=== PATIENT | female | born 1945 | race Caucasian/White ===

== ENCOUNTER 2017-08-18 11:16 | Inpatient (IN) ==
[2017-08-18] MEDS ORDERED: Lacri-Lube 3.5 GM TUBE BOTH EYES PRN (13:00)
[2017-08-18] MEDS ORDERED: *HR* Dextrose 50 % in Water (Syg) 50 ML SYRINGE IVP PRN (13:18)
[2017-08-18] MEDS ORDERED: Dextrose Gel 15 GM/37.5 ML TUBE PO PRN ×2 (13:18)
[2017-08-18] MEDS ORDERED: D5% in Water 1,000 ML IVC PRN (13:18)
--- NOTE | 2017-08-18 13:24 | Pulmonology History & Physical ---
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 Patient lives in long-term. Likely secondary to bronchitis vs HCAP ABG at [facility]: respiratory acidosis with hypoxia. SIRS (-) on intake. Afebtile, no tachycardia, not hypotensive, no leukocytosis or leukocytopenia. Agressively suction trach to minimize mucus plugging. Empiric antibiotics Vancomycin day 1 Zosyn day 1 Levaquin day 1 Microbiology: Blood culture peripheral 08/18 x2 pending Sputum culture 08/18 pending Bronchodilators SoluMedrol Elevate head of bed Difficult vascular access - place midline. Qualifiers: Respiratory failure complication: hypoxia and hypercapnia Qualified Code(s) : J96.21 - Acute and chronic respiratory failure with hypoxia; J96.22 - Acute and chronic respiratory failure with hypercapnia; J96.22 - Acute and chronic respiratory failure with hypercapnia; J96.22 - Acute and chronic respiratory failure with hypercapnia (2) Hypotension (arterial) Current visit: Yes Status: Acute BP at [facility] 08's/40's. Possibly medication induced: Patient reportedly received ativan and her antihypertensive meds prior to dialysis; potentially causing her hypotension. Currently stable. Qualifiers: Hypotension type: unspecified hypotension type Qualified Code(s): I95.9 - Hypotension, unspecified (3) ESRD (end stage renal disease) on dialysis Current visit: Yes Status: Acute Dialysis at [place]. Nephrology consult, Dr. Curran. (4) DVT prophylaxis Current visit: Yes Status: Acute Non-ambulatory at baseline. EPCD. Avoid heparin, lovenox should patient require CVC. History of Present Illness Chief complaint: dyspnea HPI: Ms. Moreno is a 72 year old female, presents to the ICU via EMS from [facility] emergency department. She was at her scheduled dialysis this morning and, while access was being obtained, became hypotensive and dyspneic. Reportedly required bagging to increase oxygenation while at dialysis. She was taken to [facility] where she remained hypotensive to 80's over 40's. Transferred to [facility] ICU as patient is vent dependent, limited respiratory support at [facility], and need for ultrasound for line placement. On arrival to [facility], patient's SBP is in the mid- high 80's. She is awake, alert, talkative. Her 2nd L NS is hanging and running. Her O2 saturation is appropriate and improved with copious deep suctioning. ROS: Pos: increased mucous secretions from bronchi/trachea, nausea Neg: Fever, chills, vomiting PMH: Chronic respiratory failure. Vent dependent with trach & PEG. COPD. MAITE. Obesity hypoventilation syndrome. Chronic atrial fibrillation on eliquis. HTN, HLD, CAD, Diastolic CHF. ESRD on dialysis (right forearm fistula, [place] dialysis, Dr. Curran) . Anemia of CKD. DM II insulin dependent. GERD, Gout. Reported sacral ulcers. anxiety, depression. Per [facility] documentation: Primary contact: DaughterNoa (last name not legible). O: [phone], H:[phone] Secondary contact: Yodit Bradford: H: [phone] 13:30 Attempted to call all three numbers above. Unsuccessful. [phone]...answering machine states "this is Sarthak." [phone]...number is not active [phone]...no answer, unable to leave message. Past Med Surg Social Fam HX - Past Medical History Medical history: atrial fibrillation, COPD, coronary artery disease, diabetes, GERD, hyperlipidemia, hypertension, renal disease, other (depression anxiety resp failure ) Psychiatric history: anxiety - Social History Smoking Status: Unknown if ever smoked Smokeless Tobacco Status: No Alcohol use: none Drug use: none Medications and Allergies Allopurinol [Zyloprim 100 MG] 100 mg PO DAILY 04/21/17 [History] Apixaban [Eliquis] 2.5 mg PO BID 04/21/17 [History] Fluticasone Propionate Nasal [Flonase] 100 mcg NS DAILY 04/21/17 [History] LORazepam [Ativan] 1 mg PO Q6H 04/21/17 [History] LORazepam [Ativan] 1 mg PO TUTHSA 04/21/17 [History] Metoprolol [Lopressor] 6.25 mg PO BID 04/21/17 [History] Midodrine HCl 2.5 mg PO Q6H PRN 04/21/17 [History] Naproxen Sodium [Aleve] 220 mg PO BID PRN 04/21/17 [History] Omeprazole [PriLOSEC] 20 mg PO DAILY 04/21/17 [History] Renal Vitamin [Renal Caps Softgel] 1 mg PO DAILY 04/21/17 [History] Sevelamer [Renvela] 800 mg PO TIDWM 04/21/17 [History] Azelastine 0.1% Nasal [place] [Astelin] 2 spray NS BID PRN 08/18/17 [History] Benzocaine/Menthol [Sore Throat Lozenge] 1 each MM Q4H PRN 08/18/17 [History] Ferrous Sulfate 325 mg PO DAILY 08/18/17 [History] GuaiFENesin/Dextromethorphan [Tussin Dm Syrup] 5 ml PO Q6H PRN 08/18/17 [History ] Homeopathic Ear Pain Drops 4 drop OT TID PRN 08/18/17 [History] Lidocaine 4% CRM (LMX) [Lmx 4] 1 appl TP TUTHSA 08/18/17 [History] Loratadine [Claritin] 10 mg PO DAILY 08/18/17 [History] Magic Mouthwash [Magic Mouthwash BLM] 10 ml PO Q6H PRN 08/18/17 [History] Sertraline [Zoloft] 50 mg PO DAILY 08/18/17 [History] levoFLOXacin [Levaquin] 500 mg PO DAILY 08/18/17 [History] 3 Allergy/AdvReac Type Severity Reaction Status Date / Time acetaminophen Allergy Vomiting Verified 04/21/17 13:28 adhesive tape Allergy See Verified 08/18/17 14:37 Comments codeine Allergy Rash Verified 04/21/17 13:28 indomethacin [From Indocin] Allergy Rash Verified 04/21/17 13:28 All Systems: The remainder of the systems were reviewed and are negative - Constitutional Constitutional: no daytime sleepiness, no fatigue, no fever(s), no lethargy, no weakness - Cardiovascular Cardiovascular: irregular heart rhythm, no chest pain, no leg edema, no pedal edema - Respiratory Respiratory: cough, dyspnea, excessive phlegm production, no hemoptysis - Gastrointestinal Gastrointestinal: nausea, no abdominal pain, no diarrhea, no hematemesis, no loose stools, no melena, no vomiting - Genitourinary Genitourinary: no difficulty urinating, no dysuria - Neurological Neurological: no abnormal speech, no confusion - Psychiatric Psychiatric: anxiety, depression - Hematologic/Lymphatic Hematologic/Lymphatic: no easy bleeding, no easy bruising Physical Examination General appearance: no acute distress, alert ENT: oropharynx moist Neck: supple Effort: normal Auscultation: bilateral: diminished breath sounds, other (Copious secrations suctioned via trach tube.) Cardiovascular: regular rate and rhythm Gastrointestinal: normoactive bowel sounds, soft, non-tender, non-distended Integumentary: normal Extremities: no cyanosis, no edema, no clubbing, pink and warm, pulses normal, no ischemia or petechiae Musculoskeletal: no deformities normal mental status, non-focal exam, pupils equal and round mood appropriate <Cinthia Cuello S - Last Filed: 08/18/17 21:10> Date of Encounter: 08/18/17 History of Present Illness HPI: Ms. Moreno is a 72 year old female All Systems: The remainder of the systems were reviewed and are negative Physical Examination Vital Signs: Vital Signs, Last 4 Hours Temp Pulse Resp BP Pulse Ox 08/18/17 20:26 98.1 F 08/18/17 20:00 86 35 102/69 100 08/18/17 19:26 35 97/85 100 08/18/17 19:00 85 35 97/58 96 08/18/17 18:30 79 21 88/54 96 08/18/17 17:58 22 92 08/18/17 17:30 76 22 111/61 96 Results - Laboratory Findings CBC and BMP: 08/18/17 14:50 08/18/17 13:09 ABG ABG pH 7.41 pH Units (7.32-7.45) D 08/18/17 15:46 ABG pCO2 36 mmHg (35-45) D 08/18/17 15:46 ABG pO2 121 mmHg (85-104) H D 08/18/17 15:46 ABG O2 Saturation 99 % (95-98) H 08/18/17 15:46 Abnormal lab findings: Abnormal lab results RBC 3.46 M/mcL (3.82-4.97) L 08/18/17 14:50 Hgb 10.4 g/dL (11.5-15.4) L 08/18/17 14:50 Hct 33.8 % (35.3-44.9) L 08/18/17 14:50 MCHC 30.8 g/dL (31.6-35.5) L 08/18/17 14:50 Plt Count 85 K/mcL (140-400) L 08/18/17 14:50 Lymphocytes # 0.5 K/mcL (0.6-4.6) L 08/18/17 14:50 Platelet Estimate Decreased (Normal) L 08/18/17 14:50 ABG pO2 121 mmHg (85-104) H D 08/18/17 15:46 ABG O2 Saturation 99 % (95-98) H 08/18/17 15:46 Carbon Dioxide 22 mEq/L (23-29) L 08/18/17 13:09 BUN 69 mg/dL (8-23) H 08/18/17 13:09 Creatinine 6.82 mg/dL (0.60-1.20) H 08/18/17 13:09 Est GFR ( Amer) 7 (> 60) L 08/18/17 13:09 Est GFR (Non-Af Amer) 6 (> 60) L 08/18/17 13:09 Glucose 128 mg/dL (70-105) H 08/18/17 13:09 Calculated Osmolality 306 (280-300) H 08/18/17 13:09 Troponin I 0.05 ng/mL (< 0.04) H* 08/18/17 20:03 - Attending Attestation I saw and evaluated this patient and my medical decision-making was reviewed with the Resident Physician. I agree with the documented findings, disposition and treatment plan as described except to the extent set forth below. We independently had [id number] contact with the patient I spent 35 minutes of Critical Care time with this patient. It involved decision making of high complexity to assess, manipulate, and support vital organ system failure and/or to prevent further life threatening deterioration of the patient's condition. The time involved in the performance of separately reportable procedures was not counted toward critical care time. Patient seen and examined at bedside Labs, radiology, chart personally reviewed. Management was reviewed during multidisciplinary critical care rounds. MOPPER:Patient is awake alert following commands having meaningful conversation was able to speak with tracheostomy. Pulm: Patient developed acute on chronic hypoxic respiratory failure complicated by hypercarbia secondary to bacterial tracheitis vs suspected gram positive and gram negative pneumonia will cover with broad spectrum antibiotics lung protective strategy for ventilation with dropping of tidal volume peak pressures lowered , adjusted the PEEP to Keep SPO2 around 94% there is some pulmonary edema will need dialysis tomorrow Cards:Patient is hemodynamically stable may be the drop in blood pressure can be due to ativan and anti-hypertensive which was given before the dialysis FEN-GI: Tube feeding according to nutrition Renal: Labs were reviewed no urgent indications for dialysis patient is a patient most likely dialysis tomorrow ID: Patient has bacterial tracheitis vs Suspected Gram positive and Gram negative pneumonia Heme/Onc:Labs reviewed Endo: Glucose Monitored Integ/MSK: Skin Care per routine ICU Nursing Protocol to prevent ulcers. Lines: All lines examined without evidence of infection : Dispo: Critically ill high risk for worsening hypoxic respiratory failure and development of septic shock . CODE:Full Code
[2017-08-18] MEDS ORDERED: Levofloxacin 750 MG/150 ML 750 MG/150 ML BAG IVPB ONE (14:00)
[2017-08-18] MEDS: Piperacillin/Tazobactam 3.375 GM in 0.9 % Sodium Chloride Mini Bag 100 ML IVPB SCH (14:49)
[2017-08-18 15:38] LABS: Calcium 8.9 mg/dL (8.6-10.3)
[2017-08-18] MEDS: Ipratropium/Albuterol Neb 3 ML IH SCH ×3 (15:49→21:27)
[2017-08-18 15:56] LABS: Basophils % 0.1 %; Hematocrit 33.8 % (35.3-44.9); Hemoglobin 10.4 g/dL (11.5-15.4); Immature Granulocytes % 0.7 % (0-4); Lymphocytes # 0.5 K/mcL (0.6-4.6); Mean Corpuscular HGB Conc 30.8 g/dL (31.6-35.5); Mean Corpuscular Hemoglobin 30.1 pg (28.0-33.3); Mean Corpuscular Volume 97.7 fL (83.0-100.0); Mean Platelet Volume 11.1 fL (9.4-12.4); Monocytes # 0.4 K/mcL (0.0-1.3); Monocytes % 4.4 %; Neutrophils # 8.7 K/mcL (1.6-8.9); Red Blood Count 3.46 M/mcL (3.82-4.97); Red Cell Distribution Width 13.9 % (11.5-14.5); Segmented Neutrophils % 89.8 %
[2017-08-18 16:04] LABS: ABG Base Excess -2 mEq/L (-2 to 3); ABG HCO3 23 mEq/L (21-27); ABG Oxygen Saturation 99 % (95-98); ABG PCO2 36 mmHg (35-45); ABG PH 7.41 pH Units (7.32-7.45); ABG PO2 121 mmHg (85-104); ABG TCO2 24 mEq/L (20-26); Blood Gas PEEP 5 cm H2O; Blood Gas Respiration Rate 18; Blood Gas VT 600 cc
[2017-08-18 16:11] LABS: Platelet Count 85 K/mcL (140-400)
[2017-08-18 16:12] LABS: Platelet Estimate Decreased (Normal)
[2017-08-18] MEDS ORDERED: Dexmedetomidine HCl 400 MCG/100 ML MLS IVC ONE (16:48)
[2017-08-18] MEDS: Dexmedetomidine HCl 400 MCG/100 ML MLS IVC SCH (16:55)
[2017-08-18] MEDS: Lacri-Lube 3.5 GM TUBE BOTH EYES SCH ×3 (18:15→23:59)
[2017-08-18] MEDS: methylPREDNISolone 125 MG/2 ML VIAL IVP SCH ×2 (18:27→23:59)
[2017-08-18 20:34] LABS: Troponin I 0.05 ng/mL (< 0.04)
[2017-08-18] MEDS: Insulin LISPRO 300 UNITS/3 ML VIAL SQ SCH ×2 (20:46→23:59)
[2017-08-18] MEDS: Chlorhexidine Rinse 15 ML MOUTHWASH MM SCH (20:54)
[2017-08-18] MEDS: Pantoprazole 40 MG VIAL IVP SCH (20:54)
[2017-08-18 21:26] LABS: Thyroid Stimulating Hormone 2.133 mcIU/mL (0.340-5.600)
[2017-08-19] MEDS: Piperacillin/Tazobactam 3.375 GM in 0.9 % Sodium Chloride Mini Bag 100 ML IVPB SCH ×2 (02:21→13:51)
[2017-08-19] MEDS: Dexmedetomidine HCl 400 MCG/100 ML MLS IVC SCH ×3 (02:22→14:07)
[2017-08-19] MEDS: Ipratropium/Albuterol Neb 3 ML IH SCH ×3 (03:30→16:07)
[2017-08-19] MEDS: Lacri-Lube 3.5 GM TUBE BOTH EYES SCH ×4 (03:48→16:41)
[2017-08-19 03:49] LABS: Basophils % 0.1 %; Hematocrit 32.7 % (35.3-44.9); Hemoglobin 10.4 g/dL (11.5-15.4); Immature Granulocytes % 0.7 % (0-4); Lymphocytes # 0.5 K/mcL (0.6-4.6); Lymphocytes % 6.3 %; Mean Corpuscular HGB Conc 31.8 g/dL (31.6-35.5); Mean Corpuscular Volume 94.2 fL (83.0-100.0); Monocytes # 0.2 K/mcL (0.0-1.3); Monocytes % 2.5 %; Neutrophils # 7.5 K/mcL (1.6-8.9); Platelet Count 104 K/mcL (140-400); Red Blood Count 3.47 M/mcL (3.82-4.97); Segmented Neutrophils % 90.4 %
[2017-08-19 04:46] LABS: Calcium 9.2 mg/dL (8.6-10.3); Potassium 5.6 mEq/L (3.5-5.1)
[2017-08-19] MEDS: Insulin LISPRO 300 UNITS/3 ML VIAL SQ SCH ×2 (05:48→11:35)
[2017-08-19] MEDS: methylPREDNISolone 125 MG/2 ML VIAL IVP SCH ×2 (05:48→13:51)
[2017-08-19] MEDS: Pantoprazole 40 MG VIAL IVP SCH (08:05)
[2017-08-19] MEDS: Chlorhexidine Rinse 15 ML MOUTHWASH MM SCH (08:05)
[2017-08-19] MEDS ORDERED: 0.9 % Sodium Chloride 250 ML IVC PRN (08:28)
--- NOTE | 2017-08-19 08:28 | Nephrology Consult Note ---
Date of Encounter: 08/19/17 Time of Encounter: 08:26 Assessment and Plan (1) ESRD (end stage renal disease) on dialysis Current Visit: Yes Status: Acute The patient will undergo dialysis today. Potassium is 5.6. She will be dialyzed on a 2K bath. Hemoglobin is 10.4. She will be maintained on Aranesp will she is here in the hospital. (2) Anemia in CKD (chronic kidney disease) Current Visit: Yes Status: Acute Qualifiers: Chronic kidney disease stage: on chronic dialysis Qualified Code(s): N18.6 - End stage renal disease; D63.1 - Anemia in chronic kidney disease; D63.1 - Anemia in chronic kidney disease; Z99.2 - Dependence on renal dialysis; Z99.2 - Dependence on renal dialysis; Z99.2 - Dependence on renal dialysis; Z99.2 - Dependence on renal dialysis (3) Acute and chronic respiratory failure ([id number]) Current Visit: Yes Status: Acute Qualifiers: Respiratory failure complication: hypoxia and hypercapnia Qualified Code(s) : J96.21 - Acute and chronic respiratory failure with hypoxia; J96.22 - Acute and chronic respiratory failure with hypercapnia; J96.22 - Acute and chronic respiratory failure with hypercapnia; J96.22 - Acute and chronic respiratory failure with hypercapnia History of Present Illness - History of Present Illness This is a 72-year-old female. She has end-stage renal disease and receives dialysis and [place] did not every Thursday. Patient presented to the dialysis unit yesterday with hypoxia. Her oxygen saturations were unable to be maintained unless she was bagged. She subsequently was sent to the emergency room at [facility]. She was found to have a mucous plug that was removed. This led to improved oxygenation. There was concern for pneumonia as well so she subsequently was transferred [facility]. Currently she is in the intensive care unit. She is resting comfortably on the ventilator. She is alert and able to communicate. She did not receive dialysis yesterday so she will undergo dialysis today. Past Med Surg Social Fam HX - Past Medical History Medical history: atrial fibrillation, COPD, coronary artery disease, diabetes, GERD, hyperlipidemia, hypertension, renal disease, other (depression anxiety resp failure ) Psychiatric history: anxiety - Social History Smoking Status: Unknown if ever smoked Smokeless Tobacco Status: No Alcohol use: none Drug use: none Medications and Allergies Allopurinol [Zyloprim 100 MG] 100 mg PO DAILY 04/21/17 [History] Apixaban [Eliquis] 2.5 mg PO BID 04/21/17 [History] Fluticasone Propionate Nasal [Flonase] 100 mcg NS DAILY 04/21/17 [History] LORazepam [Ativan] 1 mg PO Q6H 04/21/17 [History] LORazepam [Ativan] 1 mg PO TUTHSA 04/21/17 [History] Metoprolol [Lopressor] 6.25 mg PO BID 04/21/17 [History] Midodrine HCl 2.5 mg PO Q6H PRN 04/21/17 [History] Naproxen Sodium [Aleve] 220 mg PO BID PRN 04/21/17 [History] Omeprazole [PriLOSEC] 20 mg PO DAILY 04/21/17 [History] Renal Vitamin [Renal Caps Softgel] 1 mg PO DAILY 04/21/17 [History] Sevelamer [Renvela] 800 mg PO TIDWM 04/21/17 [History] Azelastine 0.1% Nasal [employer] [Astelin] 2 spray NS BID PRN 08/18/17 [History] Benzocaine/Menthol [Sore Throat Lozenge] 1 each MM Q4H PRN 08/18/17 [History] Ferrous Sulfate 325 mg PO DAILY 08/18/17 [History] GuaiFENesin/Dextromethorphan [Tussin Dm Syrup] 5 ml PO Q6H PRN 08/18/17 [History ] Homeopathic Ear Pain Drops 4 drop OT TID PRN 08/18/17 [History] Lidocaine 4% CRM (LMX) [Lmx 4] 1 appl TP TUTHSA 08/18/17 [History] Loratadine [Claritin] 10 mg PO DAILY 08/18/17 [History] Magic Mouthwash [Magic Mouthwash BLM] 10 ml PO Q6H PRN 08/18/17 [History] Sertraline [Zoloft] 50 mg PO DAILY 08/18/17 [History] levoFLOXacin [Levaquin] 500 mg PO DAILY 08/18/17 [History] 3 Allergy/AdvReac Type Severity Reaction Status Date / Time acetaminophen Allergy Vomiting Verified 04/21/17 13:28 adhesive tape Allergy See Verified 08/18/17 14:37 Comments codeine Allergy Rash Verified 04/21/17 13:28 indomethacin [From Indocin] Allergy Rash Verified 04/21/17 13:28 Review of Systems ROS unobtainable: due to endotracheal tube Exam - Vital Signs Vital signs: Initial Vital Signs Temp Pulse Resp BP Pulse Ox 96 F L 88 28 101/58 100 08/18/17 12:45 08/18/17 12:45 08/18/17 12:45 08/18/17 12:45 08/18/17 12:45 Vital Signs - Last 8 Hours Temp Pulse Resp BP Pulse Ox 08/19/17 07:43 98.7 F 08/19/17 05:39 75 18 103/53 98 08/19/17 05:15 20 104/63 98 08/19/17 05:00 86 20 104/63 99 08/19/17 04:00 98.1 F 81 18 113/64 97 08/19/17 03:51 75 08/19/17 03:30 28 125/75 94 08/19/17 03:00 80 18 121/73 100 08/19/17 02:00 74 18 109/68 100 08/19/17 01:08 27 96/55 97 08/19/17 01:00 72 18 76/55 100 08/19/17 00:43 98.4 F Intake and Output 08/18/17 08/19/17 08/19/17 23:59 07:59 15:59 Intake Total 200 / 200 200 / 200 Output Total 0 / 0 Balance 200 / 200 200 / 200 Intake: IV Fluids 200 / 200 200 / 200 PRECEDEX Premix 400 mcg In 100 100 / 100 ml @ 0.2 MCG/KG/HR 5.5 mls/hr IVC .[id number] NICOLÁS Rx#:[id number] Levaquin Premix 750mg/150 mL 100 / 100 750 mg In 150 ml @ 100 mls/hr IVPB ONCE ONE Rx#:[id number] Zosyn 3.375 GM In 0.9 % Sodium 100 / 100 100 / 100 Chloride (Mini-Bag +) 100 ML @ 25 mls/hr IVPB Q12H [facility] Rx#: [id number] Oral 0 / 0 0 / 0 Output: Urine 0 / 0 Other: # Voids 1 Weight 110.8 kg Patient Weight 08/19/17 23:59 Weight 110.8 kg - General Appearance Exam: Patient is alert. She is in no acute distress. Lungs coarse breath sounds. Heart regular rate and rhythm. Abdomen shows normal bowel sounds braze masses or organomegaly or tenderness. There is no lower extremity swelling. There is a functioning AV graft in the right upper extremity. Results - Lab Results 08/19/17 03:38 08/19/17 02:25 Most recent lab results ABG pH 7.41 pH Units (7.32-7.45) D 08/18/17 15:46 ABG pCO2 36 mmHg (35-45) D 08/18/17 15:46 ABG pO2 121 mmHg (85-104) H D 08/18/17 15:46 ABG HCO3 23 mEq/L (21-27) 08/18/17 15:46 ABG O2 Saturation 99 % (95-98) H 08/18/17 15:46 Calcium 9.2 mg/dL (8.6-10.3) 08/19/17 02:25 Consult Discharge Plan - Plan Referrals: NONE,PCP [Primary Care Provider] -
--- NOTE | 2017-08-19 11:14 | Pulmonology Progress Note ---
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 Patient lives in [facility]. Likely secondary to bronchitis/tracheitis vs HCAP ABG at [facility]: respiratory acidosis with hypoxia. SIRS (-) on intake. Afebtile, no tachycardia, not hypotensive, no leukocytosis or leukocytopenia. CXR 08/19 slightly improved; edema persists. Agressively suction trach to minimize mucus plugging. Empiric antibiotics Vancomycin day 2 Zosyn day 2 Levaquin day 2 Microbiology: Blood culture peripheral 08/18 x2 pending Sputum culture 08/18 g+ cocci, g+ rai. Culture pending. Bronchodilators SoluMedrol Elevate head of bed Diurese via dialysis. Qualifiers: Respiratory failure complication: hypoxia and hypercapnia Qualified Code(s) : J96.21 - Acute and chronic respiratory failure with hypoxia; J96.22 - Acute and chronic respiratory failure with hypercapnia; J96.22 - Acute and chronic respiratory failure with hypercapnia; J96.22 - Acute and chronic respiratory failure with hypercapnia (2) Hypotension (arterial) Status: Resolved Resolved 08/19 BP at [facility] 80's/40's. Possibly medication induced: Patient reportedly received ativan and her antihypertensive meds prior to dialysis; potentially causing her hypotension. Currently stable. Qualifiers: Hypotension type: unspecified hypotension type Qualified Code(s): I95.9 - Hypotension, unspecified (3) ESRD (end stage renal disease) on dialysis Status: Acute Dialysis at [place]. Nephrology consult, Dr. Curran. (4) DVT prophylaxis Status: Acute Non-ambulatory at baseline. EPCD. Avoid heparin, lovenox should patient require CVC. Subjective Interval history: Hospital day 2 Patient did well overnight. She required suctioning Q30 min which has marginally improved to [id number] this morning. Patient's trach was exchanged this morning to same size, same type with no complications. No hypotensive events and no intervention required; suspect medication induced and patient has metabolized off the medications. Plan for dialysis today per Dr. Cruran. Continue empiric antibiotics. Sputum culture gram stain returned with gram + cocci and Gram - rods. Objective PUL Vital signs: Last Vital Signs Temp 98.7 F 08/19/17 07:43 Pulse 76 08/19/17 10:45 Resp 18 08/19/17 10:45 BP 122/69 08/19/17 10:45 Pulse Ox 98 08/19/17 10:45 General appearance: no acute distress, alert Eyes: nonicteric ENT: oropharynx moist Neck: supple Effort: normal Auscultation: bilateral: clear, diminished breath sounds Cardiovascular: regular rate and rhythm Gastrointestinal: normoactive bowel sounds, soft, non-tender, non-distended Integumentary: normal Extremities: no cyanosis, no edema, no clubbing, pink and warm, pulses normal, no ischemia or petechiae Musculoskeletal: no deformities normal mental status, non-focal exam, pupils equal and round mood appropriate Ventilator Settings Ventilator Settings: Ventilator Settings, Last 8 Hours Ventilator Mode A/C Ventilator Mode A/C Ventilator Mode A/C Ventilator Mode A/C Ventilator Mode VC+ Ventilator Mode A/C Ventilator Mode VC+ Ventilator Mode VC+ Ventilator Mode VC+ Ventilator Mode VC+ Ventilator Mode A/C Ventilator Tidal Volume 480 Setting Ventilator Tidal Volume 480 Setting Ventilator Tidal Volume 480 Setting Ventilator Tidal Volume 480 Setting Ventilator Tidal Volume 480 Setting Ventilator Tidal Volume 480 Setting Ventilator Tidal Volume 480 Setting Ventilator Tidal Volume 480 Setting Ventilator Tidal Volume 480 Setting Ventilator Tidal Volume 480 Setting Ventilator Tidal Volume 480 Setting Ventilator Respiratory Rate 18 Setting Ventilator Respiratory Rate 18 Setting Ventilator Respiratory Rate 18 Setting Ventilator Respiratory Rate 18 Setting Ventilator Respiratory Rate 18 Setting Ventilator Respiratory Rate 18 Setting Ventilator Respiratory Rate 18 Setting Ventilator Respiratory Rate 18 Setting Ventilator Respiratory Rate 18 Setting Ventilator Respiratory Rate 18 Setting Ventilator Respiratory Rate 18 Setting Actual Respiratory Rate 18 Actual Respiratory Rate 21 Actual Respiratory Rate 22 Actual Respiratory Rate 18 Actual Respiratory Rate 24 Actual Respiratory Rate 19 Actual Respiratory Rate 18 Actual Respiratory Rate 20 Actual Respiratory Rate 20 Actual Respiratory Rate 18 Actual Respiratory Rate 28 Positive End Expiratory 8 Pressure Positive End Expiratory 8 Pressure Positive End Expiratory 8 Pressure Positive End Expiratory 8 Pressure Positive End Expiratory 8 Pressure Positive End Expiratory 8 Pressure Positive End Expiratory 8 Pressure Positive End Expiratory 8 Pressure Positive End Expiratory 8 Pressure Positive End Expiratory 8 Pressure Positive End Expiratory 8 Pressure Peak Inspiratory Airway 33 Pressure Peak Inspiratory Airway 36 Pressure Peak Inspiratory Airway 34 Pressure Peak Inspiratory Airway 36 Pressure Peak Inspiratory Airway 34 Pressure Peak Inspiratory Airway 34 Pressure Peak Inspiratory Airway 37 Pressure Peak Inspiratory Airway 37 Pressure Peak Inspiratory Airway 37 Pressure Peak Inspiratory Airway 37 Pressure Peak Inspiratory Airway 36 Pressure Results - Laboratory Findings CBC and BMP: 08/19/17 03:38 08/19/17 02:25 ABG ABG pH 7.41 pH Units (7.32-7.45) D 08/18/17 15:46 ABG pCO2 36 mmHg (35-45) D 08/18/17 15:46 ABG pO2 121 mmHg (85-104) H D 08/18/17 15:46 ABG O2 Saturation 99 % (95-98) H 08/18/17 15:46 Abnormal lab findings: Abnormal lab results RBC 3.47 M/mcL (3.82-4.97) L 08/19/17 03:38 Hgb 10.4 g/dL (11.5-15.4) L 08/19/17 03:38 Hct 32.7 % (35.3-44.9) L 08/19/17 03:38 Plt Count 104 K/mcL (140-400) L 08/19/17 03:38 Lymphocytes # 0.5 K/mcL (0.6-4.6) L 08/19/17 03:38 Platelet Estimate Decreased (Normal) L 08/18/17 14:50 ABG pO2 121 mmHg (85-104) H D 08/18/17 15:46 ABG O2 Saturation 99 % (95-98) H 08/18/17 15:46 Potassium 5.6 mEq/L (3.5-5.1) H 08/19/17 02:25 Carbon Dioxide 18 mEq/L (23-29) L 08/19/17 02:25 BUN 79 mg/dL (8-23) H 08/19/17 02:25 Creatinine 7.11 mg/dL (0.60-1.20) H 08/19/17 02:25 Est GFR ( Amer) 7 (> 60) L 08/19/17 02:25 Est GFR (Non-Af Amer) 6 (> 60) L 08/19/17 02:25 Glucose 137 mg/dL (70-105) H 08/19/17 02:25 POC Glucose 143 (58-89) H 08/19/17 05:42 Calculated Osmolality 308 (280-300) H 08/19/17 02:25 Troponin I 0.06 ng/mL (< 0.04) H* 08/19/17 02:25 - Microbiology Findings Microbiology Findings: Microbiology, Last 48 Hours 08/18/17 13:35 Sputum Culture - Preliminary Sputum - Clinical Findings Intake & Output: Intake & Output 08/18/17 08/19/17 08/19/17 23:59 07:59 15:59 Intake Total 200 / 200 200 / 200 100 / 100 Output Total 0 / 0 Balance 200 / 200 200 / 200 100 / 100 Weight 110.8 kg Consult Discharge Plan - Plan Referrals: NONE,PCP [Primary Care Provider] - <Cinthia Cuello - Last Filed: 08/19/17 22:43> Date of Encounter: 08/19/17 Objective PUL Vital signs: Last Vital Signs Temp 98 F 08/19/17 16:57 Pulse 75 08/19/17 17:45 Resp 21 08/19/17 17:45 BP 113/67 08/19/17 17:45 Pulse Ox 99 08/19/17 17:45 Ventilator Settings Ventilator Settings: Ventilator Settings, Last 8 Hours Ventilator Mode A/C Ventilator Mode A/C Ventilator Mode A/C Ventilator Mode A/C Ventilator Mode A/C Ventilator Tidal Volume 480 Setting Ventilator Tidal Volume 480 Setting Ventilator Tidal Volume 480 Setting Ventilator Tidal Volume 480 Setting Ventilator Tidal Volume 480 Setting Ventilator Tidal Volume 480 Setting Ventilator Respiratory Rate 18 Setting Ventilator Respiratory Rate 18 Setting Ventilator Respiratory Rate 18 Setting Ventilator Respiratory Rate 18 Setting Ventilator Respiratory Rate 18 Setting Ventilator Respiratory Rate 18 Setting Actual Respiratory Rate 20 Actual Respiratory Rate 23 Actual Respiratory Rate 24 Actual Respiratory Rate 23 Actual Respiratory Rate 20 Actual Respiratory Rate 22 Positive End Expiratory 8 Pressure Positive End Expiratory 8 Pressure Positive End Expiratory 8 Pressure Positive End Expiratory 8 Pressure Positive End Expiratory 8 Pressure Positive End Expiratory 8 Pressure Peak Inspiratory Airway 33 Pressure Peak Inspiratory Airway 34 Pressure Peak Inspiratory Airway 33 Pressure Peak Inspiratory Airway 40 Pressure Peak Inspiratory Airway 36 Pressure Peak Inspiratory Airway 33 Pressure Results - Laboratory Findings CBC and BMP: 08/19/17 03:38 08/19/17 02:25 ABG ABG pH 7.41 pH Units (7.32-7.45) D 08/18/17 15:46 ABG pCO2 36 mmHg (35-45) D 08/18/17 15:46 ABG pO2 121 mmHg (85-104) H D 08/18/17 15:46 ABG O2 Saturation 99 % (95-98) H 08/18/17 15:46 Abnormal lab findings: Abnormal lab results RBC 3.47 M/mcL (3.82-4.97) L 08/19/17 03:38 Hgb 10.4 g/dL (11.5-15.4) L 08/19/17 03:38 Hct 32.7 % (35.3-44.9) L 08/19/17 03:38 Plt Count 104 K/mcL (140-400) L 08/19/17 03:38 Lymphocytes # 0.5 K/mcL (0.6-4.6) L 08/19/17 03:38 Platelet Estimate Decreased (Normal) L 08/18/17 14:50 ABG pO2 121 mmHg (85-104) H D 08/18/17 15:46 ABG O2 Saturation 99 % (95-98) H 08/18/17 15:46 Potassium 5.6 mEq/L (3.5-5.1) H 08/19/17 02:25 Carbon Dioxide 18 mEq/L (23-29) L 08/19/17 02:25 BUN 79 mg/dL (8-23) H 08/19/17 02:25 Creatinine 7.11 mg/dL (0.60-1.20) H 08/19/17 02:25 Est GFR ( Amer) 7 (> 60) L 08/19/17 02:25 Est GFR (Non-Af Amer) 6 (> 60) L 08/19/17 02:25 Glucose 137 mg/dL (70-105) H 08/19/17 02:25 POC Glucose 149 (58-89) H 08/19/17 11:21 Calculated Osmolality 308 (280-300) H 08/19/17 02:25 Troponin I 0.06 ng/mL (< 0.04) H* 08/19/17 02:25 - Microbiology Findings Microbiology Findings: Microbiology, Last 48 Hours 08/18/17 13:35 Sputum Culture - Preliminary Sputum Staphylococcus aureus - Clinical Findings Intake & Output: Intake & Output 08/19/17 08/19/17 08/19/17 07:59 15:59 23:59 Intake Total 200 / 200 800 / 800 Output Total 2600 / 2600 Balance 200 / 200 800 / 800 -2600 / -2600 Weight 110.8 kg - Attending Attestation - Attending Attestation I saw and evaluated this patient and my medical decision-making was reviewed with the Resident Physician. I agree with the documented findings, disposition and treatment plan as described except to the extent set forth below. We independently had [id number] contact with the patient Patient seen and examined at bedside Labs, radiology, chart personally reviewed. Management was reviewed during multidisciplinary critical care rounds. PRINTER'S ASSISTANT:Patient is awake alert following commands having meaningful conversation was able to speak with tracheostomy. Pulm: Patient developed acute on chronic hypoxic respiratory failure complicated by hypercarbia secondary to bacterial tracheitis vs suspected gram positive and gram negative pneumonia will cover with broad spectrum antibiotics lung protective strategy for ventilation with dropping of tidal volume peak pressures lowered , adjusted the PEEP to Keep SPO2 around 94% there is some pulmonary edema will need dialysis tomorrow 3/ Patient got dialysis today with acceptable oxygenation and ventilation with lung protective strategy still has lot of secretions sputum growing MRSA patient is on appropriate antibiotics . Cards:Patient is hemodynamically stable tolerated the dialysis well . FEN-GI: Tube feeding according to nutrition Renal: CKD patient got dialysis today . ID: Patient has Gram positive pneumonia with sputum growing MRSA Heme/Onc:Labs reviewed Endo: Glucose Monitored Integ/MSK: Skin Care per routine ICU Nursing Protocol to prevent ulcers. Lines: All lines examined without evidence of infection : Dispo: Per family request patient is transferred to [facility] CODE:Full Code
--- NOTE | 2017-08-19 12:59 | Event Note ---
Date of Encounter: 08/19/17 Time of Encounter: 12:30 12:30 I met the patient's daughter, Cece bedside. Updated her on the patient's condition, diagnoses, and plan of care. There was some frustration at the family not being contacted prior to last night. We discussed my multiple attempts yesterday when the patient first arrived and my inability to connect. Cece notes the long-term has had the incorrect contact numbers despite attempts on to correct them. She is understanding of the problem. The patient's three daughters all live in/around [place], [place]. Cece requests transfer from [facility] to [facility] so that family is able to visit. I directly asked the patient if this is also her preference; she wishes to be transferred to a facility closer to her family. I called the patient's other daughter, Noa Beckwith who is the patient's medical POA. Noa also requests transfer to [facility]. Once patient completes her dialysis at [facility], will re-assess and ensure she is stable then transfer to [facility] once accepted. I will update Noa accordingly. Per Cece, the contact phone numbers provided by the long-term are incorrect. The corrected contact numbers are below: Noa Beckwith, daughter, medical POA: [phone] Cece Rivera, daughter: [phone] Yodit Betancourt, daughter: [phone] 13:30 I discussed the patient with [facility] [place]. Reason for transfer: Patient request. Patient is accepted to their ICU to the care of Dr. Faustin. The transfer center has a bed request into their ICU; currently no ICU beds however there are several patients slated for discharge and/or transfer to step down. Transfer center will notify us when a bed is available. I called the patient's POA, Noa, to update her. Prior to transfer, patient received a full dialysis treatment this afternoon. She is hemodynamically stable.
[2017-08-19] MEDS ORDERED: Vancomycin 500 MG in 0.9 % Sodium Chloride Mini Bag 100 ML IVPB ONE (16:00)
[2017-08-19] MEDS ORDERED: Aminoglycoside Consult 1 EACH MC ONE (18:34)
[2017-08-19 19:38] VITALS: BP 113/67
[2017-08-20] MEDS ORDERED: LEVOFLOXACIN 500 MG/100 ML MLS IVPB SCH (14:00)
--- NOTE | 2017-08-21 13:10 | Discharge Summary ---
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 Patient lives in long term. Likely secondary to bronchitis/tracheitis vs HCAP ABG at [facility]: respiratory acidosis with hypoxia. SIRS (-) on intake. Afebtile, no tachycardia, not hypotensive, no leukocytosis or leukocytopenia. CXR 08/19 slightly improved; edema persists. Agressively suction trach to minimize mucus plugging. Empiric antibiotics Vancomycin day 2 Zosyn day 2 Levaquin day 2 Microbiology: Blood culture peripheral 08/18 x2 pending Sputum culture 08/18 g+ cocci, g+ rai. Culture pending. Bronchodilators SoluMedrol Elevate head of bed Diurese via dialysis. Per preference of patient and family, transfer to [facility]; patient's daughters live in [place]. Patient accepted to [facility] ICU, Dr. Faustin. Qualifiers: Respiratory failure complication: hypoxia and hypercapnia Qualified Code(s) : J96.21 - Acute and chronic respiratory failure with hypoxia; J96.22 - Acute and chronic respiratory failure with hypercapnia; J96.22 - Acute and chronic respiratory failure with hypercapnia; J96.22 - Acute and chronic respiratory failure with hypercapnia (2) Hypotension (arterial) Priority: Secondary Status: Resolved Comments: Resolved 08/19 BP at [facility] 80's/40's. Possibly medication induced: Patient reportedly received ativan and her antihypertensive meds prior to dialysis; potentially causing her hypotension. Currently stable. Qualifiers: Hypotension type: unspecified hypotension type Qualified Code(s): I95.9 - Hypotension, unspecified (3) ESRD (end stage renal disease) on dialysis Priority: Secondary Status: Acute Comments: Dialysis at [facility] [place]. Nephrology consult, Dr. Coleman. (4) DVT prophylaxis Priority: Secondary Status: Acute Comments: Non-ambulatory at baseline. EPCD. Avoid heparin, lovenox should patient require CVC. - Discharge Medications Home Medications: Allopurinol [Zyloprim 100 MG] 100 mg PO DAILY 04/21/17 [History] Apixaban [Eliquis] 2.5 mg PO BID 04/21/17 [History] Fluticasone Propionate Nasal [Flonase] 100 mcg NS DAILY 04/21/17 [History] LORazepam [Ativan] 1 mg PO Q6H 04/21/17 [History] LORazepam [Ativan] 1 mg PO TUTHSA 04/21/17 [History] Metoprolol [Lopressor] 6.25 mg PO BID 04/21/17 [History] Midodrine HCl 2.5 mg PO Q6H PRN 04/21/17 [History] Naproxen Sodium [Aleve] 220 mg PO BID PRN 04/21/17 [History] Omeprazole [PriLOSEC] 20 mg PO DAILY 04/21/17 [History] Renal Vitamin [Renal Caps Softgel] 1 mg PO DAILY 04/21/17 [History] Sevelamer [Renvela] 800 mg PO TIDWM 04/21/17 [History] Azelastine 0.1% Nasal [place] [Astelin] 2 spray NS BID PRN 08/18/17 [History] Benzocaine/Menthol [Sore Throat Lozenge] 1 each MM Q4H PRN 08/18/17 [History] Ferrous Sulfate 325 mg PO DAILY 08/18/17 [History] GuaiFENesin/Dextromethorphan [Tussin Dm Syrup] 5 ml PO Q6H PRN 08/18/17 [History ] Homeopathic Ear Pain Drops 4 drop OT TID PRN 08/18/17 [History] Lidocaine 4% CRM (LMX) [Lmx 4] 1 appl TP TUTHSA 08/18/17 [History] Loratadine [Claritin] 10 mg PO DAILY 08/18/17 [History] Magic Mouthwash [Magic Mouthwash BLM] 10 ml PO Q6H PRN 08/18/17 [History] Sertraline [Zoloft] 50 mg PO DAILY 08/18/17 [History] levoFLOXacin [Levaquin] 500 mg PO DAILY 08/18/17 [History] Allergies/Adverse Reactions: 3 Allergy/AdvReac Type Severity Reaction Status Date / Time acetaminophen Allergy Vomiting Verified 04/21/17 13:28 adhesive tape Allergy See Verified 08/18/17 14:37 Comments codeine Allergy Rash Verified 04/21/17 13:28 indomethacin [From Indocin] Allergy Rash Verified 04/21/17 13:28 Labs on day of discharge: Preliminary micro results at discharge 08/18/17 14:50 Blood Culture - Preliminary Peripheral Venipuncture No growth. 08/18/17 14:50 Blood Culture - Preliminary Peripheral Venipuncture No growth. - Impressions ITS Impressions Chest X-Ray 08/18/17 13:00 IMPRESSION: Stable edema with decreased/ resolved pleural effusions. D/ / Randell Mays MD / Randell Mays MD Interpreting Provider: Randell Mays MD Chest X-Ray 08/19/17 07:16 IMPRESSION: Unchanged chest D/ / 08/19/2017 07:58:31 Luke Arriaag MD / [facility] Interpreting Provider: Luke Arriaga MD Date of admission: 08/18/17 12:51 Primary care physician: PCP NONE Consults: 08/18/17 13:05 Midline [Consult to Invasive Line Access Team] [CONS] Routine Reason for Consult: Limited vascular access. Line Type: Midline 08/18/17 13:14 Consult to Nephrology [CONS] Routine Consulting Provider: [facility] Reason for Consult: ESRD with [facility]. Did not begin her scheduled dialysis today. Vent dependent. In ICU due to acute hypoxic resp fail likely bronchitis vs HCAP. No evidence of sepsis on intake. Will need dialysis; does not need emergent dialysis today. Time Notified: 13:16 Call Completed: Yes 08/18/17 14:14 Consult to Invasive Line Access Team [CONS] Routine Reason for Consult: LIMITED VASCULAR ACCESS Line Type: EPIV 08/19/17 08:30 Consult to Dialysis [CONS] ONCE Discharging clinician: Tal Diaz Anticipated date of discharge: 08/20/17 - Patient Status Disposition: Transfer Other Condition: Good - Discharge Instructions Follow Up With: NONE,PCP [Primary Care Provider] - - Diet and Activity Diet: advance to your usual diet - Hospital Course Hospital course: Ms. Moreno is a 72 year old female, presents to the ICU via EMS from [facility] emergency department. She was at her scheduled dialysis this morning and, while access was being obtained, became hypotensive and dyspneic. Reportedly required bagging to increase oxygenation while at dialysis. She was taken to [facility] where she remained hypotensive to 80's over 40's. Transferred to [facility] ICU as patient is vent dependent, limited respiratory support at [facility], and need for ultrasound for line placement. On arrival to [facility], patient's SBP is in the mid- high 80's. She is awake, alert, talkative. Her 2nd L NS is hanging and running. Her O2 saturation is appropriate and improved with copious deep suctioning. ROS: Pos: increased mucous secretions from bronchi/trachea, nausea Neg: Fever, chills, vomiting PMH: Chronic respiratory failure. Vent dependent with trach & PEG. COPD. MAITE. Obesity hypoventilation syndrome. Chronic atrial fibrillation on eliquis. HTN, HLD, CAD, Diastolic CHF. ESRD on dialysis (right forearm fistula, [facility], Dr. Coleman) . Anemia of CKD. DM II insulin dependent. GERD, Gout. Reported sacral ulcers. anxiety, depression. Hospital day 2 Patient did well overnight. She required suctioning Q30 min which has marginally improved to [id number] this morning. Patient's trach was exchanged this morning to same size, same type with no complications. No hypotensive events and no intervention required; suspect medication induced and patient has metabolized off the medications. Plan for dialysis today per Dr. Coleman. Continue empiric antibiotics. Sputum culture gram stain returned with gram + cocci and Gram - rods. Plan to transfer to [facility] per wishes of patient and her POA/daughter Noa; Patient's daughters live in [place], patient has previously been to [place]. - Time Spent with Patient Total time spent providing and/or coordinating discharge services: Physical Examination Vital Signs: Temp 98F HR 74, irregular RR 21 - Mechanically ventilated via chronic tracheostomy. FiO2 45%. SaO2 by pulse oximetry 99% BP 113/67 General appearance: no acute distress, alert Eyes: nonicteric ENT: oropharynx moist Effort: normal Auscultation: bilateral: clear, diminished breath sounds Cardiovascular: regular rate and rhythm Gastrointestinal: normoactive bowel sounds, soft, non-tender, non-distended Integumentary: normal Extremities: no cyanosis, no edema, pink and warm, no ischemia or petechiae Musculoskeletal: no deformities normal mental status, non-focal exam, pupils equal and round mood appropriate - VTE Documentation of Mechanical Device: Graduated compression elastic hosiery <Cinthia Cuello S - Last Filed: 08/22/17 10:27> Orders not resulted at time of discharge: Pending orders 08/18/17 13:02 EKG [ECG 12 lead ECG] [ECG] Routine 08/18/17 14:50 Culture,Blood [BC] Routine Date of Encounter: 08/22/17 Labs on day of discharge: Preliminary micro results at discharge 08/18/17 14:50 Blood Culture - Preliminary Peripheral Venipuncture No growth. 08/18/17 14:50 Blood Culture - Preliminary Peripheral Venipuncture No growth. - Impressions ITS Impressions Chest X-Ray 08/18/17 13:00 IMPRESSION: Stable edema with decreased/ resolved pleural effusions. D/ / Randell Mays MD / Randell Mays MD Interpreting Provider: Randell Mays MD Chest X-Ray 08/19/17 07:16 IMPRESSION: Unchanged chest D/ / 08/19/2017 07:58:31 [facility] Inter[facility] Provider: Luke Arriaga MD Date of admission: 08/18/17 12:51 Primary care physician: PCP NONE Consults: 08/18/17 13:05 Midline [Consult to Invasive Line Access Team] [CONS] Routine Reason for Consult: Limited vascular access. Line Type: Midline 08/18/17 13:14 Consult to Nephrology [CONS] Routine Consulting Provider: [facility] [place] Reason for Consult: ESRD with [facility] dialysis. Did not begin her scheduled dialysis today. Vent dependent. In ICU due to acute hypoxic resp fail likely bronchitis vs HCAP. No evidence of sepsis on intake. Will need dialysis; does not need emergent dialysis today. Time Notified: 13:16 Call Completed: Yes 08/18/17 14:14 Consult to Invasive Line Access Team [CONS] Routine Reason for Consult: LIMITED VASCULAR ACCESS Line Type: EPIV 08/19/17 08:30 Consult to Dialysis [CONS] ONCE - Hospital Course Hospital course: Ms. Moreno is a 72 year old female came with worsening chronic hypoxic respiratory failure she is chronic vent dependent patient treated for Health care associated as patient is a long term patient , patient family requested transfer to [facility]. Patient was transferred . - Time Spent with Patient Total time spent providing and/or coordinating discharge services:
== END 2017-08-19 18:35 | disposition other institution (70) | DRG 208 ==
LOC: ICNU 12:51
PROVIDERS: ADMIT Internal Medicine Pulmonary Disease; ATTEND Internal Medicine Pulmonary Disease